=== PATIENT | male | born 1990 | race Caucasian/White ===

== ENCOUNTER 2020-07-04 16:41 | Emergency (ER) | payer OTHER | END 2020-07-04 17:25 | disposition home or self-care (01) | LOC: JVIRT 16:41 | DX: Z11.52 Encounter for screening for COVID-19 (principal) | CPT/HCPCS: G2251-GT; Q3014-GT ==

== ENCOUNTER 2020-07-10 12:44 | Emergency (ER) | payer OTHER | END 2020-07-10 13:24 | disposition home or self-care (01) | LOC: JVIRT 12:44 | DX: Z20.822 Contact with and (suspected) exposure to COVID-19 (principal) | CPT/HCPCS: G2251-GT; Q3014-GT ==

== ENCOUNTER 2022-06-18 19:17 | Emergency (ER) | payer BC, OTHER ==
[2022-06-18 19:44] VITALS: RESP 18; TEMP 98.6; BMI 30.7
[2022-06-18 20:11] LABS: HEMATOCRIT 47.7 % (35.4-49); HEMOGLOBIN 16.8 G/dL (11.7-16.9); MCH 32.9 pg (25.7-33.7); MCHC 35.3 g/dl (32.0-35.9); MEAN CELL VOLUME 93.4 fl (80-96); MEAN PLT VOLUME 7.5 fl (7.5-11.1); PLATELET COUNT 251.1 10^3/uL (134-434); RBC 5.11 10^6/uL (4.00-5.60); WHITE BLOOD COUNT 7.7 10^3/uL (4.0-10.8)
[2022-06-18 20:30] LABS: ALBUMIN 4.5 g/dl (3.4-5.0); BILIRUBIN,TOTAL 0.8 mg/dl (0.2-1); CALCIUM 9.4 mg/dl (8.5-10); TOT PROT 7.7 g/dl (6.4-8.2)
[2022-06-18 21:17] LABS: PLATELET ESTIMATE ADEQUATE
[2022-06-18 21:37] VITALS: BP 143/105; PULSE 86
== END 2022-06-18 21:37 | disposition home or self-care (01) ==
LOC: FER 19:17
DX: R51.9 Headache, unspecified (principal); R79.89 Other specified abnormal findings of blood chemistry
CPT/HCPCS: 36415; 70450-TC; 80053; 85027; 99284-25